=== PATIENT | female | born 1960 | race Caucasian/White ===

== ENCOUNTER 2021-01-22 08:38 | Inpatient (IN) | payer OTHER ==
[~2021-01-22] VITALS: Ht 162.6 cm; Wt 87.6 kg
--- NOTE | 2021-01-22 08:45 | NUR ---
PT BRITTANY FROM HOME, FOUND UNRESPONSIVE BY AT APPROX 0700 THIS MORNING. LAST KNOWN WELL AT 0130 THIS MORNING. HX OF MS. 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
[2021-01-22] MEDS ORDERED: SODIUM CHLORIDE FLUSH 10ML SYR IVF ONE (09:00)
[2021-01-22] MEDS ORDERED: SODIUM CHLORIDE 0.9% 1,000 ML IV ONE (09:00)
[2021-01-22] MEDS ORDERED: ETOMIDATE 40 MG/20 ML IVPush ONE (09:00)
[2021-01-22] MEDS ORDERED: SUCCINYLCHOLINE 20 MG/ML, 10ML IVPush ONE (09:00)
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
--- NOTE | 2021-01-22 09:22 | NUR ---
PT RETURNED FROM CT, ARRIVED AT BS. JOVANNI PLACED, WARMING MEASURES INITIATED.
[2021-01-22] MEDS ORDERED: PLEASE ENTER ALLERGIES MC SCH (09:30)
[2021-01-22] MEDS ORDERED: PLEASE ENTER HEIGHT AND WEIGHT MC SCH (09:30)
[2021-01-22 09:47] LABS: MICROSCOPIC NOT IND
[2021-01-22] MEDS ORDERED: DIME240C PO (09:51)
[2021-01-22] MEDS ORDERED: BACL20TA PO (09:51)
[2021-01-22] MEDS ORDERED: PARO30TA3 PO (09:51)
[2021-01-22 09:57] LABS: AMPHETAMINE SCREEN, URINE Negative (Negative); BENZODIAZEPINE SCREEN, URINE Negative (Negative); CANNABINOID SCREEN, URINE Positive (Negative); OPIATE SCREEN, URINE Negative (Negative)
[2021-01-22 09:59] LABS: BARBITURATE SCREEN, URINE Negative (Negative); COCAINE SCREEN, URINE Negative (Negative); METHADONE SCREEN, URINE Negative (Negative)
[2021-01-22] MEDS ORDERED: PROPOFOL 100 ML IV PRN (10:00)
[2021-01-22 10:04] LABS: BASOPHILS % (AUTO) 1 % (0-1); EOSINOPHILS % (AUTO) 4 % (1-7); LYMPHOCYTES % (AUTO) 12 % (22-44); MD NO; MEAN CORPUSCULAR HEMOGLOBIN 31.7 pg (27.0-34.8); MEAN CORPUSCULAR HGB CONC 34.9 g/dL (32.4-35.8); MEAN PLATELET VOLUME 7.5 fL (7.4-10.4); MONOCYTES % (AUTO) 4 % (2-9); NEUTROPHILS % (AUTO) 79 % (42-75); PLATELET COUNT 197 x10^3/uL (130-400); RED BLOOD COUNT 4.31 x10^6/uL (3.82-5.3); RED CELL DISTRIBUTION WIDTH 14.9 % (9.6-15.2)
--- NOTE | 2021-01-22 10:11 | NUR ---
PT RESTING CALMLY, NG TUBE PATENT TO LCS. BAIG DRAINING TO GRAVITY. RT AT BS. WARMING MEASURES REMAIN IN PLACE. ERP DISCUSSED POC WITH AT BS.
[2021-01-22 10:15] LABS: INTERNATIONAL NORMALIZED RATIO 0.98 (0.93-1.1); PROTHROMBIN TIME 10.5 Seconds (9.6-11.5)
[2021-01-22 10:16] LABS: ALANINE AMINOTRANSFERASE 97 U/L (12-78); ALBUMIN 4.2 g/dL (3.4-5.0); ANION GAP 6 mmol/L (5-15); CALCIUM 9.2 mg/dL (8.5-10.1); CHLORIDE 105 mmol/L (98-107); CREATININE 1.12 mg/dL (0.55-1.02)
[2021-01-22 10:18] LABS: ALKALINE PHOSPHATASE 45 U/L (45-117); CREATINE KINASE, TOTAL 208 U/L (26-192); TOTAL PROTEIN 7.2 g/dL (6.4-8.2); TROPONIN I < 0.015 ng/mL (0.000-0.045)
--- NOTE | 2021-01-22 10:18 | NUR ---
LAURA TABARES AT BS
[2021-01-22 10:20] LABS: SALICYLATE LEVEL < 1.7 mg/dL (2.8-20.0)
--- NOTE | 2021-01-22 10:24 | NUR ---
Pt to be admitted to CCU, room 547. Report called to CAROLANN.
[2021-01-22 10:30] LABS: BILIRUBIN,TOTAL 0.8 mg/dL (0.2-1.0)
[2021-01-22] MEDS ORDERED: LIDOCAINE-MPF 1%, 2ML ENDO PRN (10:30)
[2021-01-22] MEDS ORDERED: FENTANYL PF 100 MCG/2ML IVPush PRN (10:30)
[2021-01-22] MEDS ORDERED: ACETAMINOPHEN 650 MG/20.3 ML UDC PO/NG PRN (10:30)
[2021-01-22] MEDS ORDERED: SODIUM CHLORIDE FLUSH 10ML SYR IVF PRN (10:30)
[2021-01-22] MEDS ORDERED: PHARMACY MAY ADJ FOR RENAL FX MC SCH (10:30)
[2021-01-22] MEDS ORDERED: POLYETHYLENE GLYCOL 17 GM PACKET PO PRN (11:30)
[2021-01-22] MEDS ORDERED: hydrALAzine 20 MG/ML, 1ML IVPush PRN (11:30)
[2021-01-22] MEDS ORDERED: ACETAMINOPHEN 325 MG TABLET PO PRN (11:30)
[2021-01-22] MEDS ORDERED: MELATONIN 5 MG TABLET PO PRN (11:30)
[2021-01-22] MEDS ORDERED: ONDANSETRON 2MG/ML, 2ML IVPush PRN (11:30)
[2021-01-22] MEDS ORDERED: DOCUSATE 100 MG CAPSULE PO PRN (11:30)
[2021-01-22] MEDS: FAMOTIDINE 20 MG/2 ML IV SCH ×2 (12:21→23:05)
[2021-01-22] MEDS: HEPARIN 5,000 UNITS/ML, 1ML SQ SCH ×2 (12:21→20:43)
[2021-01-22 12:54] LABS: FREE T4 (FREE THYROXINE) 0.17 ng/dL (0.76-1.46); TROPONIN I < 0.015 ng/mL (0.000-0.045)
[2021-01-22] MEDS: LEVOTHYROXINE 100 MCG INJ IVPush SCH (13:59)
[2021-01-22] MEDS ORDERED: SUCCINYLCHOLINE 20 MG/ML, 10ML ONE (15:55)
[2021-01-22] MEDS ORDERED: ETOMIDATE 20 MG/10 ML ONE (15:55)
[2021-01-22] MEDS: INSULIN LISPRO 100 UNITS/ML, PEN SQ-INSULIN SCH ×2 (16:00→20:39)
[2021-01-22] MEDS: BACLOFEN 10 MG TABLET PO SCH ×2 (16:39→20:43)
[2021-01-22 17:27] LABS: TROPONIN I < 0.015 ng/mL (0.000-0.045)
[2021-01-22] MEDS ORDERED: LACTATED RINGERS 1,000 ML IVBOLUS ONE (18:00)
[2021-01-22] MEDS: PROPOFOL 100 ML IV PRN (18:49)
[2021-01-22] MEDS: NOREPINEPHRINE 8 MG in SODIUM CHLORIDE 0.9% 242 ML IV PRN (20:35)
[2021-01-22] MEDS: TEMPLATE NON-FORMULARY MED. (Dimethyl Fumarate (Tecfidera) 240 MG) PO SCH (20:51)
[2021-01-23] VITALS (16 sets, daily range): BP systolic 90–149; BP diastolic 52–105
[2021-01-23] MEDS: PROPOFOL 100 ML IV PRN (02:58)
[2021-01-23 04:22] LABS: BASOPHILS % (AUTO) 0 % (0-1); EOSINOPHILS % (AUTO) 0 % (1-7); LYMPHOCYTES % (AUTO) 5 % (22-44); MEAN CORPUSCULAR HEMOGLOBIN 31.6 pg (27.0-34.8); MEAN CORPUSCULAR HGB CONC 34.9 g/dL (32.4-35.8); MEAN PLATELET VOLUME 7.6 fL (7.4-10.4); MONOCYTES % (AUTO) 2 % (2-9); NEUTROPHILS % (AUTO) 93 % (42-75); PLATELET COUNT 331 x10^3/uL (130-400); RED BLOOD COUNT 4.59 x10^6/uL (3.82-5.3); RED CELL DISTRIBUTION WIDTH 14.8 % (9.6-15.2)
[2021-01-23 04:35] LABS: ANION GAP 9 mmol/L (5-15); CALCIUM 8.6 mg/dL (8.5-10.1); CHLORIDE 106 mmol/L (98-107)
[2021-01-23 04:38] LABS: ALANINE AMINOTRANSFERASE 83 U/L (12-78); ALKALINE PHOSPHATASE 50 U/L (45-117); BILIRUBIN,TOTAL 0.7 mg/dL (0.2-1.0); CREATININE 1.69 mg/dL (0.55-1.02); TOTAL PROTEIN 7.1 g/dL (6.4-8.2)
[2021-01-23 04:44] LABS: MD SCAN
[2021-01-23] MEDS: HEPARIN 5,000 UNITS/ML, 1ML SQ SCH ×3 (04:54→20:24)
[2021-01-23] MEDS: BACLOFEN 10 MG TABLET PO SCH (05:44)
[2021-01-23] MEDS: LIOTHYRONINE 5 MCG TABLET PO SCH (05:44)
[2021-01-23] MEDS ORDERED: LACTATED RINGERS 1,000 ML IVBOLUS ONE (07:00)
[2021-01-23] MEDS: INSULIN LISPRO 100 UNITS/ML, PEN SQ-INSULIN SCH ×4 (08:34→20:32)
[2021-01-23] MEDS: TEMPLATE NON-FORMULARY MED. (Dimethyl Fumarate (Tecfidera) 240 MG) PO SCH ×2 (09:00→20:27)
[2021-01-23] MEDS: LEVOTHYROXINE 100 MCG INJ IVPush SCH (09:11)
[2021-01-23] MEDS: PAROXETINE 10 MG TABLET PO SCH (09:12)
[2021-01-23] MEDS ORDERED: SODIUM CHLORIDE 0.9% 1,000 ML IV SCH (13:00)
[2021-01-23] MEDS: SODIUM CHLORIDE 0.9% 1,000 ML IV SCH ×2 (13:31→20:26)
[2021-01-23] MEDS: NOREPINEPHRINE 8 MG in SODIUM CHLORIDE 0.9% 242 ML IV PRN (18:30)
[2021-01-23] MEDS ORDERED: EPINEPHRINE 1 MG/ML, 1ML ONE (21:39)
[2021-01-23] MEDS ORDERED: FAMOTIDINE 20 MG/2 ML IV SCH (23:00)
[2021-01-24] MEDS: SODIUM CHLORIDE 0.9% 1,000 ML IV SCH (05:31)
[2021-01-24] MEDS: LIOTHYRONINE 5 MCG TABLET PO SCH (05:31)
[2021-01-24] MEDS: HEPARIN 5,000 UNITS/ML, 1ML SQ SCH ×2 (05:31→12:37)
[2021-01-24 05:59] LABS: BASOPHILS % (AUTO) 0 % (0-1); EOSINOPHILS % (AUTO) 0 % (1-7); LYMPHOCYTES % (AUTO) 8 % (22-44); MEAN CORPUSCULAR HEMOGLOBIN 32.9 pg (27.0-34.8); MEAN CORPUSCULAR HGB CONC 36.3 g/dL (32.4-35.8); MEAN PLATELET VOLUME 7.6 fL (7.4-10.4); MONOCYTES % (AUTO) 5 % (2-9); NEUTROPHILS % (AUTO) 86 % (42-75); PLATELET COUNT 157 x10^3/uL (130-400); RED BLOOD COUNT 3.47 x10^6/uL (3.82-5.3); RED CELL DISTRIBUTION WIDTH 14.4 % (9.6-15.2)
[2021-01-24 06:02] LABS: MD NO
[2021-01-24 06:04] LABS: ANION GAP 4 mmol/L (5-15); CALCIUM 8.2 mg/dL (8.5-10.1); CHLORIDE 113 mmol/L (98-107)
[2021-01-24 06:05] LABS: CREATININE 1.18 mg/dL (0.55-1.02)
[2021-01-24] MEDS ORDERED: POTASSIUM CHLORIDE 20 MEQ PACKET PO ONE (07:00)
[2021-01-24] MEDS: INSULIN LISPRO 100 UNITS/ML, PEN SQ-INSULIN SCH (07:00)
[2021-01-24] MEDS: LEVOTHYROXINE 100 MCG INJ IVPush SCH (08:37)
[2021-01-24] MEDS: TEMPLATE NON-FORMULARY MED. (Dimethyl Fumarate (Tecfidera) 240 MG) PO SCH (08:38)
[2021-01-24] MEDS: PAROXETINE 10 MG TABLET PO SCH (08:38)
[2021-01-24] MEDS ORDERED: BACLOFEN 10 MG TABLET NG SCH (10:30)
[2021-01-24] MEDS ORDERED: ACET325T26 PO (11:39)
[2021-01-24] MEDS ORDERED: HEPA50002 SQ (11:39)
[2021-01-24] MEDS ORDERED: ONDA4VIA60 IVPush (11:39)
[2021-01-24] MEDS ORDERED: FENT50VI28 IVPush (11:39)
[2021-01-24] MEDS ORDERED: POLY17PO5 PO (11:39)
[2021-01-24] MEDS ORDERED: ACET650S21 PO/NG (11:39)
[2021-01-24] MEDS ORDERED: BACL-19 NG (11:39)
[2021-01-24] MEDS ORDERED: DOCU-131 PO (11:39)
[2021-01-24] MEDS ORDERED: LEVO100V8 IVPush (11:39)
[2021-01-24] MEDS ORDERED: INSU100I11 SQ-INSULIN (11:39)
[2021-01-24] MEDS ORDERED: LIOT5TAB10 PO (11:39)
[2021-01-24] MEDS ORDERED: FAMO20VI3 IV (11:39)
[2021-01-24] MEDS ORDERED: INSULIN LISPRO 100 UNITS/ML, PEN SQ-INSULIN SCH (13:00)
== END 2021-01-24 13:33 | disposition short-term general hospital (02) | DRG 208 ==
LOC: ED 10:44 → CCU 11:08
PROVIDERS: ADMIT Emergency Medicine; ATTEND Hospitalist
PROC: 5A1945Z Respiratory Ventilation, 24-96 Consecutive Hours (ICD-10-PCS; principal; 2021-01-22)
PROC: 0BH17EZ Insertion of Endotracheal Airway into Trachea, Via Natural or Artificial Opening (ICD-10-PCS; 2021-01-22)
PROC: 0T9B70Z Drainage of Bladder with Drainage Device, Via Natural or Artificial Opening (ICD-10-PCS; 2021-01-22)
PROC: 02HV33Z Insertion of Infusion Device into Superior Vena Cava, Percutaneous Approach (ICD-10-PCS; 2021-01-23)
PROC: B548ZZA Ultrasonography of Superior Vena Cava, Guidance (ICD-10-PCS; 2021-01-23)
DX: J96.01 Acute respiratory failure with hypoxia (principal); E03.5 Myxedema coma; E87.1 Hypo-osmolality and hyponatremia; N17.9 Acute kidney failure, unspecified; G93.40 Encephalopathy, unspecified; Z99.11 Dependence on respirator [ventilator] status; D72.829 Elevated white blood cell count, unspecified; F32.9 Major depressive disorder, single episode, unspecified; G35 Multiple sclerosis; T38.0X5A Adverse effect of glucocorticoids and synthetic analogues, initial encounter; Z85.3 Personal history of malignant neoplasm of breast; Z85.828 Personal history of other malignant neoplasm of skin; Z90.13 Acquired absence of bilateral breasts and nipples; Y92.89 Other specified places as the place of occurrence of the external cause
CPT/HCPCS: 31500; 36415; 36573; 36600; 70450; 71045; 80048; 80053; 80299; 80307; 80320; 80329; 81003; 82140; 82533; 82550; 82803; 82962; 83605; 83735; 83880; 84100; 84145; 84439; 84443; 84478; 84481; 84484; 85025; 85610; 85730; 87040; 87070; 87081; 87205; 93005; 94002; 94003; 95816; 96374; G0378; J1644; J2704; J2930; C1751; G0480; J0330; J7030; J7050; J7120